=== PATIENT | male | born 1985 | race Caucasian/White ===

== ENCOUNTER 2025-06-02 08:06 | Emergency (ER) | payer BC, SELFPAY ==
[2025-06-02 08:18] VITALS: BP 117/76
[2025-06-02 08:20] VITALS: BP 117/76
--- NOTE | 2025-06-02 08:40 | ED.GENMED ---
History of Present Illness
General
Chief Complaint: Post Operative Problem(s)
Source: patient
Exam Limitations: none
Time Seen by Provider: 06/02/25 08:25
History of Present Illness
History of Present Illness:
Lipoma removal about 2 weeks ago. Sutures removed 3 days ago. Patient concerned with some dark blood and clot from this morning. Feels fine. No pain no purulent drainage no fever
Phy Exam
Physical Exam
Physical Exam:
General: Nontoxic appearing in no distress
Skin: Warm and dry, no rash
Neuro: Alert, nontoxic, grossly nonfocal
Psychiatric: Good eye contact and appropriate
Musculoskeletal: Postoperative appearance to the right upper medial proximal arm. 2 open wounds each about a centimeter. More superior 1 is dry with a small scab. Inferior 1 is is open although no active bleeding. There is a small surrounding
hematoma. Some areas of ecchymosis. No erythema unusual drainage or tenderness. Good distal pulses and color
Course
Vital Signs
Initial and Last Documented VS:
Initial Vital Signs
Temp Pulse Resp BP Pulse Ox
98.5 F 83 20 117/76 98
06/02/25 08:18 06/02/25 08:18 06/02/25 08:18 06/02/25 08:18 06/02/25 08:18
Last Documented Vital Signs
Temp Pulse Resp BP Pulse Ox
98.2 F 87 16 117/76 98
06/02/25 08:20 06/02/25 08:20 06/02/25 08:20 06/02/25 08:20 06/02/25 08:43
MDM/Problems Addressed
Differential Diagnosis Includes:
Clinically likely a postop seroma/hematoma. No sign of infection. Medically stable. Discharged to follow-up
*Pulse Oximetry
SaO2: 98
Oxygen Mode of Delivery: Room air
Patient hypoxic: no
*Critical Care Note
Total Time (30-74mins, 75-104mins- exclusive of procedures): Not Applicable
Update Note
Update Note:
Wound appears well. No active bleeding. Motor or sensory neurovascular intact. No secondary infection. I did try patient's plastic surgeon to no avail. Stable for discharge to follow-up
ED Attending Note
-
Portions of this chart may have been created with voice recognition software.� Occasional wrong word or��sound alike� substitutions may have occurred due to the inherent limitations of voice recognition software.
Discharge Plan
Departure
Patient Disposition: Home (Routine Discharge)
Date of Disposition: 06/02/25
Time of Disposition: 08:47
Patient with high blood pressure during this ER visit?: No
Discharge Problem:
Postoperative bleeding, Suspect seroma/hematoma
Instructions: Bleeding After Surgery
Referrals:
Too Limon MD [Family Provider, [facility]]
Activity Restrictions/Additional Instructions:
Call your plastic surgeon for close follow-up
Interventions
Interventions:
*Risk Screen - Suicide Last Done: 06/02/25 08:20
*Neglect/Abuse Screening Last Done: 06/02/25 08:20
Discharge Date and Time
Print Language: SLOVAK
== END 2025-06-02 09:02 | disposition home or self-care (01) ==
LOC: EMR 08:06
PROVIDERS: EMERGENCY PHYSICIAN Emergency Medicine; FAMILY PHYSICIAN Family Medicine
DX: L76.21 Postprocedural hemorrhage of skin and subcutaneous tissue following a dermatologic procedure (principal)
CPT/HCPCS: 99281